=== PATIENT | male | born 1945 | race Caucasian/White ===

== ENCOUNTER 2022-09-11 15:15 | Outpatient (CLI) | payer BC, MEDICARE ==
[~2022-09-11 15:15] MED LIST: Iopamidol 370 76% 100 ML VIAL ONE
== END 2022-09-11 15:16 | disposition home or self-care (01) ==
LOC: MADCT 15:15
PROVIDERS: ATTEND Surgery
DX: R10.31 Right lower quadrant pain (principal); K40.90 Unilateral inguinal hernia, without obstruction or gangrene, not specified as recurrent
CPT/HCPCS: 36415; 74177; 82565; Q9967

== ENCOUNTER 2022-10-02 15:24 | Outpatient (CLI) | payer MEDICARE ==
[2022-10-02 17:24] LABS: #Basophils 0.1 thou/uL (0.0-0.2); #Eosinphils 0.3 thou/uL (0.0-0.7); #Lymphocytes 2.6 thou/uL (1.20-3.40); #Monocytes 0.6 thou/uL (0.11-0.59); #Neutrophils 2.3 thou/uL (1.40-6.50); %Basophils 2.2 % (0.0-1.0); %Eosinophils 5.8 % (0.0-10.0); %Lymphocytes 43.5 % (21.0-51.0); %Monocytes 10.7 % (0.0-10.0); %Neutrophils 37.9 % (42.0-75.0); Anisocytosis SLIGHT = 6-15 cells (100X) (0-5/hpf); Hemoglobin 13.8 g/dL (14.0-18.0); Hypochromia SLIGHT = 6-15 cells (100X) (0-5/hpf); MDiff Complete? YES; Mean Corpuscular Hemoglobin 30.9 pg (27.0-31.0); Mean Corpuscular Volume 96.7 fl (78.0-98.0); Mean Platelet Volume 13.2 fL (7.4-10.4); Platelet Adequacy Comment Appears Adequate; Platelet Count 148 10x3/uL (130-400); RBC Distribution Width 13.1 % (11.5-14.5); Red Blood Cell (RBC) Count 4.46 mill/uL (4.70-6.10)
== END 2022-10-02 15:25 | disposition home or self-care (01) ==
LOC: MADLAB 15:24
PROVIDERS: ATTEND Surgery
DX: K40.90 Unilateral inguinal hernia, without obstruction or gangrene, not specified as recurrent (principal)
CPT/HCPCS: 36415; 85025; 86850; 86900; 86901; 93005; 93010